=== PATIENT | female | born 1955 | race Caucasian/White ===

== ENCOUNTER 2019-01-09 13:14 | Emergency (ER) | payer BC ==
--- NOTE | 2019-01-09 14:02 | UC ---
Skin Complaint HPI - HPI Summary HPI Summary: Left cheek rash that is itchy. There is no pain, not hot, not red and no fever. No medical problems and she is only on vitamins. No wheezing, trouble swallowing , lip involvement. No changes in soaps, products or foods. No inolvment of the chest or any other skin areas. It also has moved to the chin and under the chin as well. - History of Current Complaint Chief Complaint: UCSkin Time Seen by Provider: 01/09/19 13:37 Stated Complaint: SKIN CONCERN Hx Obtained From: Patient ?: No Onset/Duration: Gradual Onset, Lasting Days Skin Exposure Onset/Duration: Days Ago Timing: Constant Onset Severity: Moderate Current Severity: Moderate Pain Intensity: 0 Location: Discrete, Face Aggravating Factor(s): Nothing Alleviating Factor(s): Nothing Associated Signs & Symptoms: Positive: Rash. Negative: Nausea, Vomiting, Numbness, Thirst, Diaphoresis, Weakness, Pallor, Shivering, Fever, Chills, Cough , Wheezing, Chest Pain, Hoarseness, Throat Tightening, Lightheadedness, Syncope , Drainage, Tenderness, Joint Swelling - Allergy/Home Medications Allergies/Adverse Reactions: Allergies Allergy/AdvReac Type Severity Reaction Status Date / Time No Known Allergies Allergy Verified 01/09/19 13:36 Home Medications: Home Medications Cholecalciferol TAB* [Vitamin D TAB*] 1,000 unit PO DAILY 01/09/19 [History Confirmed 01/09/19] Multivit,Tx with Iron,Minerals [Thera-M] 1 each PO 01/09/19 [History] PMH/Surg Hx/FS Hx/Imm Hx Previously Healthy: Yes - Surgical History Surgical History: Yes Surgery Procedure, Year, and Place: gallbladder removed - Family History Known Family History: Positive: Non-Contributory - Social History Alcohol Use: Weekly Alcohol Amount: Thursday night Substance Use Type: None Smoking Status (MU): Never Smoked Tobacco Review of Systems All Other Systems Reviewed And Are Negative: Yes Skin: Positive: Rash Physical Exam Triage Information Reviewed: Yes Appearance: Well-Appearing, No Pain Distress, Well-Nourished Vital Signs: Initial Vital Signs Temp 98.0 F 01/09/19 13:34 Pulse 72 01/09/19 13:34 Resp 16 01/09/19 13:34 BP 152/79 01/09/19 13:34 Pulse Ox 100 01/09/19 13:34 Vital Signs Reviewed: Yes Eyes: Positive: Conjunctiva Clear ENT: Positive: Normal ENT inspection, Hearing grossly normal, Pharynx normal, TMs normal, Uvula midline, Other - There is a rash on the left cheek and chin and under the chin. Mild swelling. [place] colored. Not hot or red. Non tender. Does not involve lips, tongue, pharynx, nares or anywhere close to the nose. Oral exam neg for swelling, pustules, gum swelling.. Negative: Pharyngeal erythema, Nasal congestion, Nasal drainage, TM bulging, TM dull, TM red, Tonsillar swelling, Tonsillar exudate, Trismus, Muffled voice Course/Dx - Differential Diagnoses - Skin Complaint Differential Diagnoses: Abscess, Angioedema, Cellulitis - Diagnoses Provider Diagnosis: Rash and nonspecific skin eruption Discharge - Sign-Out/Discharge Documenting (check all that apply): Patient Departure All imaging exams completed and their final reports reviewed: No Studies - Discharge Plan Condition: Good Disposition: HOME Prescriptions: predniSONE [Prednisone 20 MG TAB] 40 mg PO DAILY #10 tablet Patient Education Materials: Acute Rash (ED) Referrals: Rebecca Kohler MD [Primary Care Provider] - If Needed - Billing Disposition and Condition Condition: GOOD Disposition: Home
== END 2019-01-09 14:07 | disposition home or self-care (01) ==
LOC: UCCORT 13:14
DX: R21 Rash and other nonspecific skin eruption (principal)
CPT/HCPCS: 99202; G0463